=== PATIENT | female | born 1995 | race Hispanic/Latino ===

== ENCOUNTER → 2017-10-27 | Outpatient (CLI) | payer OTHER ==
[2017-10-27 17:49] LABS: MEAN CORPUSCULAR HEMOGLOBIN 26.6 pg (27.0-33.0); MEAN CORPUSCULAR HGB CONC 33.3 g/dl (32.0-36.5); MEAN CORPUSCULAR VOLUME 79.9 fl (80.0-96.0); PLATELET COUNT, AUTOMATED 256 10^3/uL (150-450); RED BLOOD COUNT 4.88 10^6/uL (4.00-5.40); RED CELL DISTRIBUTION WIDTH 13.2 % (11.5-14.5); WHITE BLOOD COUNT 7.4 10^3/uL (4.0-10.0)
[2017-10-27 18:29] LABS: TOTAL 25(OH) VITAMIN D 27.3 NG/ML (30.0-100.0)
[2017-10-27 18:32] LABS: ALBUMIN/GLOBULIN RATIO 1.14 (1.00-1.93); ALKALINE PHOSPHATASE 62 U/L (45-117); ALT/SGPT 21 U/L (12-78); ANION GAP 6 MEQ/L (8-16); AST/SGOT 15 U/L (7-37); BILIRUBIN,TOTAL 0.5 MG/DL (0.2-1.0); BLOOD UREA NITROGEN 11 MG/DL (7-18); CALCIUM LEVEL 8.9 MG/DL (8.5-10.1); CARBON DIOXIDE LEVEL 26 MEQ/L (21-32); CHLORIDE LEVEL 107 MEQ/L (98-107); FREE T4 0.95 NG/DL (0.76-1.46); GLOMERULAR FILTRATION RATE > 60.0 (>60); GLUCOSE, FASTING 78 MG/DL (70-100); POTASSIUM SERUM 4.7 MEQ/L (3.5-5.1); SODIUM LEVEL 139 MEQ/L (136-145); TOTAL PROTEIN 7.5 GM/DL (6.4-8.2)
== END ==
LOC: M SMT 15:08
DX: Z13.29 Encounter for screening for other suspected endocrine disorder (principal); Z13.0 Encounter for screening for diseases of the blood and blood-forming organs and certain disorders involving the immune mechanism; E55.9 Vitamin D deficiency, unspecified
CPT/HCPCS: 84443

== ENCOUNTER → 2017-11-24 | Outpatient (REF) | payer OTHER ==
[2017-11-24 20:29] LABS: CHLAMYDIA DNA AMPLIFICATION NEGATIVE (NEGATIVE); GC DNA AMPLIFICATION NEGATIVE (NEGATIVE)
== END ==
LOC: M LAB REF 17:41
DX: Z11.3 Encounter for screening for infections with a predominantly sexual mode of transmission (principal)

== ENCOUNTER → 2018-03-07 | Outpatient (CLI) | payer OTHER ==
[2018-03-07 17:49] LABS: BASO % 0.4 % (0.0-1.0); EOS # 0.1 10^3/uL (0.0-0.50); EOS % 0.8 % (0.0-3.0); HEMATOCRIT 39.9 % (36.0-47.0); HEMOGLOBIN 14.1 g/dl (12.0-15.5); IMMATURE GRANULOCYTE % 0.4 % (0-3.0); LYMPH # 2.2 10^3/uL (1.5-6.5); LYMPH % 23.6 % (24.0-44.0); MEAN CORPUSCULAR HEMOGLOBIN 29.7 pg (27.0-33.0); MEAN CORPUSCULAR HGB CONC 35.3 g/dl (32.0-36.5); MEAN CORPUSCULAR VOLUME 84.2 fl (80.0-96.0); MONO # 0.5 10^3/uL (0.0-0.8); MONO % 5.3 % (0.0-5.0); NEUTROPHILS # 6.6 10^3/uL (1.8-7.7); NEUTROPHILS % 69.5 % (36.0-66.0); PLATELET COUNT, AUTOMATED 242 10^3/uL (150-450); RED BLOOD COUNT 4.74 10^6/uL (4.00-5.40); RED CELL DISTRIBUTION WIDTH 12.5 % (11.5-14.5); WHITE BLOOD COUNT 9.5 10^3/uL (4.0-10.0)
[2018-03-07 19:53] LABS: CHLAMYDIA DNA AMPLIFICATION NEGATIVE (NEGATIVE); GC DNA AMPLIFICATION NEGATIVE (NEGATIVE)
[2018-03-08 09:15] LABS: RUBELLA IgG QUALITATIVE IMMUNE (IMMUNE)
[2018-03-08 09:19] LABS: HBsAg Prenatal NEGATIVE (NEGATIVE)
[2018-03-08 09:45] LABS: HEPATITIS C VIRUS ABY INDEX 0.1 INDEX (<0.8)
[2018-03-08 11:06] LABS: HIV 1&2 SCREEN CENTAUR NEGATIVE (NEGATIVE)
== END ==
LOC: M SMT 14:53
DX: Z36.89 Encounter for other specified antenatal screening (principal); Z3A.08 8 weeks gestation of pregnancy
CPT/HCPCS: 86762

== ENCOUNTER → 2018-04-03 | Outpatient (REF) | payer OTHER | LOC: M LAB REF 17:20 | DX: O30.031 Twin pregnancy, monochorionic/diamniotic, first trimester (principal) ==

== ENCOUNTER 2018-04-27 08:15 | Emergency (ER) | payer OTHER ==
[2018-04-27] MEDS: ACETAMINOPHEN 325 MG TAB PO (09:00)
[2018-04-27] MEDS: NS 1,000 ML IV (09:00)
[2018-04-27 09:25] LABS: BASO % 0.3 % (0.0-1.0); EOS # 0.1 10^3/uL (0.0-0.50); EOS % 0.8 % (0.0-3.0); HEMOGLOBIN 11.8 g/dl (12.0-15.5); IMMATURE GRANULOCYTE % 0.3 % (0-3.0); LYMPH # 1.4 10^3/uL (1.5-6.5); LYMPH % 19.8 % (24.0-44.0); MEAN CORPUSCULAR HEMOGLOBIN 30.6 pg (27.0-33.0); MEAN CORPUSCULAR HGB CONC 35.8 g/dl (32.0-36.5); MEAN CORPUSCULAR VOLUME 85.5 fl (80.0-96.0); MONO # 0.4 10^3/uL (0.0-0.8); MONO % 6.1 % (0.0-5.0); NEUTROPHILS # 5.1 10^3/uL (1.8-7.7); NEUTROPHILS % 72.7 % (36.0-66.0); PLATELET COUNT, AUTOMATED 178 10^3/uL (150-450); RED BLOOD COUNT 3.86 10^6/uL (4.00-5.40); RED CELL DISTRIBUTION WIDTH 13.1 % (11.5-14.5); WHITE BLOOD COUNT 7.1 10^3/uL (4.0-10.0)
[2018-04-27 09:36] LABS: AMORPHOUS SEDIMENT RFX SMALL (NEGATIVE); KETONE, URINE AUTO RFX NEGATIVE (NEGATIVE); LEUKOCYTE ESTERASE UR AUTO RFX 1+ (NEGATIVE); MUCUS, URINE RFX SMALL (NEGATIVE); NITRITE, URINE AUTO RFX NEGATIVE (NEGATIVE); RBC, URINE AUTO RFX TNTC /HPF (0-3); SPECIFIC GRAVITY UR AUTO RFX 1.014 (1.002-1.035); SQUAM EPITHELIAL CELL UR AURFX 4 /HPF (0-6); WBC, URINE AUTO RFX 112 /HPF (0-3)
[2018-04-27 10:04] LABS: ANION GAP 8 MEQ/L (8-16); BLOOD UREA NITROGEN 6 MG/DL (7-18); C REACTIVE PROTEIN QUANTITATIV 0.42 MG/DL (0.00-0.30); CALCIUM LEVEL 8.3 MG/DL (8.5-10.1); CARBON DIOXIDE LEVEL 23 MEQ/L (21-32); CHLORIDE LEVEL 108 MEQ/L (98-107); CREATININE FOR GFR 0.44 MG/DL (0.55-1.30); GLOMERULAR FILTRATION RATE > 60.0 (>60); GLUCOSE, FASTING 82 MG/DL (70-100); HCG, SERUM QUANTITATIVE 74482 MIU/ML; POTASSIUM SERUM 3.7 MEQ/L (3.5-5.1); SODIUM LEVEL 139 MEQ/L (136-145)
[2018-04-27] MEDS: CEPHALEXIN 500 MG CAP PO (10:30)
== END 2018-04-27 10:51 | disposition home or self-care (01) ==
LOC: M ED 08:15
DX: O26.892 Other specified pregnancy related conditions, second trimester (principal); O23.32 Infections of other parts of urinary tract in pregnancy, second trimester; O23.02 Infections of kidney in pregnancy, second trimester; N12 Tubulo-interstitial nephritis, not specified as acute or chronic; Z3A.15 15 weeks gestation of pregnancy
CPT/HCPCS: 76811

== ENCOUNTER → 2018-05-29 | Outpatient (CLI) | payer OTHER | LOC: M SMT 12:57 | DX: O30.032 Twin pregnancy, monochorionic/diamniotic, second trimester (principal); Z3A.20 20 weeks gestation of pregnancy | CPT/HCPCS: 76811 ==

== ENCOUNTER → 2018-06-30 | Outpatient (CLI) | payer OTHER | LOC: M SMT 13:04 | DX: O30.031 Twin pregnancy, monochorionic/diamniotic, first trimester (principal); Z3A.25 25 weeks gestation of pregnancy | CPT/HCPCS: 76811 ==

== ENCOUNTER → 2018-08-16 | Outpatient (CLI) | payer OTHER ==
[~2018-08-16] MED LIST: KEFL500C17 PO; PREN1TAB15
[2018-08-16 18:27] LABS: BASO % 0.4 % (0.0-1.0); EOS # 0.1 10^3/uL (0.0-0.50); EOS % 1.3 % (0.0-3.0); HEMATOCRIT 35.9 % (36.0-47.0); HEMOGLOBIN 12.2 g/dl (12.0-15.5); LYMPH # 1.5 10^3/uL (1.5-6.5); MEAN CORPUSCULAR HEMOGLOBIN 31.2 pg (27.0-33.0); MEAN CORPUSCULAR VOLUME 91.8 fl (80.0-96.0); MONO # 0.7 10^3/uL (0.0-0.8); MONO % 6.7 % (0.0-5.0); NEUTROPHILS # 7.8 10^3/uL (1.8-7.7); NEUTROPHILS % 75.8 % (36.0-66.0); PLATELET COUNT, AUTOMATED 195 10^3/uL (150-450); RED BLOOD COUNT 3.91 10^6/uL (4.00-5.40); WHITE BLOOD COUNT 10.3 10^3/uL (4.0-10.0)
== END ==
LOC: M SMT 13:23
PROVIDERS: ATTEND Advanced Practice Midwife
DX: O30.032 Twin pregnancy, monochorionic/diamniotic, second trimester (principal)

== ENCOUNTER → 2018-08-16 | Outpatient (CLI) | payer OTHER ==
--- NOTE | 2018-08-16 22:24 | REP ---
Clinical: Twin gestation. Anatomical reevaluation Comparison: 06/30/2018 . Findings: Examination demonstrates diamniotic monochorionic twin gestation. Placenta is identified posterolaterally towards the right side and grade III without evidence for placenta previa or abruption. Cervix measures 3.0 cm in length and appears closed. Concordant growth is noted. Gestational age by LMP at 31 weeks 5 days with estimated date of delivery 10/13/2018 . TWIN A: Twin A identified in cephalic presentation along the maternal left side. motion is appreciated. Amniotic fluid volume is normal and the deepest pocket measures 3.6 cm. FHR equals 147 beats per minute. Estimated weight 1787 grams ( 39th percentile). Limited anatomical assessment without obvious abnormality. ------- TWIN B: Twin B identified in transverse (head to maternal right) presentation along the maternal midline side. motion is appreciated. Amniotic fluid volume is normal and the deepest pocket measures 3.2 cm. FHR equals 150 beats per minute. Estimated weight 1791 grams ( 40th percentile). Limited anatomical assessment without obvious abnormality. Impression: Known diamniotic monochorionic twin gestation demonstrating appropriate concordant growth. No gross abnormalities are identified. Electronically Signed by Kannan Pradhan MD 08/16/2018 10:15 P
== END ==
LOC: M RAD 16:24
PROVIDERS: ATTEND Advanced Practice Midwife
DX: O30.032 Twin pregnancy, monochorionic/diamniotic, second trimester (principal); Z3A.31 31 weeks gestation of pregnancy; O32.2XX2 Maternal care for transverse and oblique lie, fetus 2

== ENCOUNTER → 2018-08-24 | Outpatient (REF) | payer OTHER | LOC: M LAB REF 16:37 | PROVIDERS: ATTEND Obstetrics & Gynecology | DX: O30.033 Twin pregnancy, monochorionic/diamniotic, third trimester (principal) ==

== ENCOUNTER 2018-08-29 16:55 | Inpatient (IN) | payer OTHER ==
[~2018-08-29] VITALS: Ht 165.1 cm; Wt 75.0 kg
--- NOTE | 2018-08-29 17:54 | NUR ---
L&D H&P HPI: 23 year old at 33+4 weeks estimated gestation. [place]/Di twin gestation. Expected date of confinement: 10/13/18. dated by LMP c/w a first trimester ultrasound. Presents today with complaint of a large loss of clear fluid around 1445 this afternoon. Unprovoked. Denies any recent intercourse. She has continued to leak fluid since the initial loss of fluid. Denies vaginal bleeding or painful uterine contractions. Reports regular movement. course notable for the followin. [place]/Di twins. Spontaneously conceived. Normal concordant growth thus far. 08/16/18: A, 39th percentile/1787g, B 40th percentile/1791g. Reassuring antepartum testing thus far. 2. malpresentation: Vertex / Breech labs: Blood type O+, antibody screen negative, rubella immune, VDRL nonreactive , hepatitis B surface antigen negative, HIV negative, hepatitis C antibody negative, GC/CT negative, aneuploidy/maternal serum screening: not done, 1 hour glucose challenge test: 93, GBS unknown. Radiology/OB US: no anomalies or placental abnormalities detected. History Past medical history: none Surgical history: none Medications: PNV, FeSO4, Folate Allergies: NKDA [employer] ASSISTANT history: +HPV. Dysplasia hx unknown. no other STI OB history:G1 Social history: no t/e/d Family history: no MR , VTE Objective Vitals: Normotensive, normal heart rate, afebrile Heart: Regular rate and rhythm. No murmurs, rubs or gallops. Lungs: Clear to auscultation bilaterally. No wheezes, crackles, rales or rhonchi. Abdomen: Uterine fundal height consistent with dates. No guarding or rebound tenderness. No uterine fundal tenderness. Extremities: No clubbing, cyanosis or edema. Normal deep tendon reflexes. Sterile speculum exam: +pooling, +Nitrazine/ferning, clear fluid Sterile vaginal exam: 1 cm, 25 %effacement, -3 station, cephalic, intact External monitoring: heart rate category 1 Tocodynamometer: contractions present every 2 min; no pain reported. Assessment/Plan 23 year old at 33+4 weeks gestation. Diagnosis: [place]/Di twins with premature rupture of membranes. No e/o IAI or active PTL. Vertex / breech pres entation. Reassuring and maternal status. -Admit to labor and delivery -Latency abx; IV ampicillin 2g q6h and Azithromycin 1g PO x 1 - corticosteroids: Betamethasone 12mg IM q24h x 2 doses -Tocolysis PRN while receiving course of corticosteroids -Timing of delivery plan: 34+0 weeks after BMTZ course. Rationale for delivery at 34+0 weeks discussed with patient and her . Deliver sooner for matern al or indications. -Mode of delivery planned: PLTCS for malpresentation. -Continuous external monitoring and tocodynamometer -NICU notified of pt's admission. Dr. Ubaldo Han, DO, FACOG
[2018-08-29] MEDS ORDERED: AZITHROMYCIN 250 MG TAB PO ONE (18:00)
[2018-08-29] MEDS: AMPICILLIN SOD 2 GM in D5W MINI-BAG PLUS 100 ML IV SCH (18:15)
[2018-08-29] MEDS: BETAMETHASONE SOLUSPAN 6MG/ML INJ 5ML (J0702) IM SCH (18:27)
[2018-08-29 18:33] LABS: HEMATOCRIT 36.2 % (36.0-47.0); HEMOGLOBIN 12.7 g/dl (12.0-15.5); MEAN CORPUSCULAR HEMOGLOBIN 31.1 pg (27.0-33.0); MEAN CORPUSCULAR HGB CONC 35.1 g/dl (32.0-36.5); MEAN CORPUSCULAR VOLUME 88.7 fl (80.0-96.0); PLATELET COUNT, AUTOMATED 179 10^3/uL (150-450); RED BLOOD COUNT 4.08 10^6/uL (4.00-5.40)
[2018-08-29] MEDS: INDOMETHACIN 25 MG CAP PO PRN (19:38)
[2018-08-30] VITALS (9 sets, daily range): BP systolic 92–112; BP diastolic 52–59
[2018-08-30] MEDS: AMPICILLIN SOD 2 GM in D5W MINI-BAG PLUS 100 ML IV SCH ×5 (00:15→23:59)
[2018-08-30] MEDS: INDOMETHACIN 25 MG CAP PO PRN ×2 (07:23→17:00)
--- NOTE | 2018-08-30 07:53 | NUR ---
Progress Note Pt continues to leak clear fluid (small amounts). No VB. Denies painful contractions or uterine pain. +FM x 2. Denies subjective fever/chills/myalgias, sob/cp. VSS, normotensive, afebrile Abd: soft,nt,nd,no uterine fundal tenderness, no guarding / rebound tenderness EFM: Cat I [place]: irreg, nonpainful contractions A/P: 23yo G1 PPROM w/ [place]/Di twins at 33+5 weeks. No e/o IAI or PTL. Reassuring status x 2. -Continue w/ latency abx -BMTZ #2 due later today -PLTCS at 34+0 weeks or sooner if indicated. Bryan Han, DO
[2018-08-30] MEDS ORDERED: CALCIUM CARBONATE 500 MG CHEW U/D PO PRN (12:00)
[2018-08-30] MEDS ORDERED: LOPERAMIDE 2 MG CAP PO PRN (12:00)
[2018-08-30] MEDS ORDERED: PILL CRUSHER/CUTTER 1 EACH XX PRN (12:00)
[2018-08-30] MEDS: FAMOTIDINE 20 MG TAB PO SCH ×2 (12:44→21:00)
[2018-08-30] MEDS: BETAMETHASONE SOLUSPAN 6MG/ML INJ 5ML (J0702) IM SCH (18:15)
[2018-08-31] VITALS (8 sets, daily range): BP systolic 99–116; BP diastolic 52–63
[2018-08-31] MEDS: AMPICILLIN SOD 2 GM in D5W MINI-BAG PLUS 100 ML IV SCH ×3 (05:46→19:10)
--- NOTE | 2018-08-31 08:10 | NUR ---
Progress notes S: No complaints, rare contractions O: [id number] AF NAD Abd: NT, gravid FHT: Cat I x 2 toco: none A/P 23 yo G1 at 33 6/7 weeks with twins., PPROM Latency antibiotics finished steroids Plan delivery via tomorrow Rohan Fay MD
[2018-08-31] MEDS: FAMOTIDINE 20 MG TAB PO SCH ×2 (08:44→21:40)
[2018-09-01] VITALS (8 sets, daily range): BP systolic 101–121; BP diastolic 51–74
[2018-09-01] MEDS: AMPICILLIN SOD 2 GM in D5W MINI-BAG PLUS 100 ML IV SCH (00:03)
[2018-09-01] MEDS ORDERED: LR 1,000 ML IV SCH (04:19)
[2018-09-01] MEDS ORDERED: LACTATED RINGER'S 1000 ML IV STA (04:19)
[2018-09-01] MEDS ORDERED: BICITRA 30ML SOLN UDC PO ONE (04:30)
[2018-09-01 05:05] LABS: HEMOGLOBIN 9.8 g/dl (12.0-15.5); MEAN CORPUSCULAR HEMOGLOBIN 31.1 pg (27.0-33.0); MEAN CORPUSCULAR HGB CONC 33.8 g/dl (32.0-36.5); MEAN CORPUSCULAR VOLUME 92.1 fl (80.0-96.0); PLATELET COUNT, AUTOMATED 146 10^3/uL (150-450); RED BLOOD COUNT 3.15 10^6/uL (4.00-5.40); WHITE BLOOD COUNT 11.2 10^3/uL (4.0-10.0)
[2018-09-01] MEDS: FAMOTIDINE 20 MG TAB PO SCH ×2 (09:00→20:56)
--- NOTE | 2018-09-01 10:51 | NUR ---
Progress Note No changes over past 24 hours. Pt still c/o LOF,clear. No VB or painful uctx. VSS,normotensive,afebrile US,rao: vertex/breech EFM: Reactive x 2. [place]: ctxs every 3-5 min A/P: PPROM, [place]/Di twins, 34+0 weeks. Completed course of corticosteroids. Proceed to PLTCS this AM. Pt has been NPO since MICHELA. Bryan Han DO
[2018-09-01] MEDS ORDERED: OXYTOCIN DRIP 30 UNITS in APPROPRIATE DILUENT 1 EA IV SCH (12:13)
[2018-09-01] MEDS ORDERED: MEASLES,MUMPS,RUBELLA VACCINE INJ (MMR-II) (90707) SC SCH (12:15)
[2018-09-01] MEDS ORDERED: PROMETHAZINE 25 MG TAB PO PRN (12:15)
[2018-09-01] MEDS ORDERED: RHOGAM 300 MCG (1500 IU) INJ (J2790) IM SCH (12:15)
[2018-09-01] MEDS ORDERED: ONDANSETRON 4MG/2ML VIAL (J2405) IV PRN ×2 (12:15→12:45)
[2018-09-01] MEDS ORDERED: PERCOCET 5MG/325MG TAB PO PRN (12:15)
[2018-09-01] MEDS ORDERED: OXYTOCIN 30 UNITS IN 0.9% NaCl 500ML IV BAG (J2590) As Ordered ONE (12:25)
--- NOTE | 2018-09-01 12:31 | NUR ---
Operative Note Date of procedure: 09/01/2018 Procedure: Primary low-transverse section Anesthesia: Spinal with Duramorph Preoperative diagnosis: 34+0 weeks gestation, Monochorionic / Diamniotic twin gestation, prelabor rupture of membranes, Vertex/Breech presentation. Postoperative diagnosis: same Indication: 23yo now P2. [place]/Di twins complicated by PPROM. Received corticosteroids. Vertex/breech presentation. Mode of delivery elected: [facility] Primary surgeon: Ubaldo Han D.O., [employer] Supervisor: Bryan Daugherty CNM (essential role in surgical site exposure and assistance with delivery of both twins through hysterotomy) Estimated blood loss:800 ml IV fluids administered: 1300 ml crystalloid Drains: Lopez catheter. Urine output:150 ml data: Twin A Apgars 9 and 9. BW: 1900b, 4lbs 3oz. Twin B Apgars 9 and 9, BW: 1960g, 4lbs 5oz. Preoperative/prophylactic antibiotics: Ancef 2 g IV (given within 30 minutes prior to surgical start time). Intraoperative findings: vertex / breech presentation. Ruptured amniotic sac of Twin A, with minimal clear fluid. Normal uterus and bilateral adnexa/ovaries. 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 Specimen(s): mono/di placenta Procedure: The patient was counseled and consented on the risks, benefits, indications and alternatives of the procedure. Informed consent was obtained and placed in the c abbasi. She was taken to the operating room with an IV running. She was placed on the operating table. Spinal anesthesia was administered without any difficulty and found to be adequate. She was placed in the dorsal supine position with a leftward tilt. Sequential compression devices were placed on the lower extremities. A Lopez catheter was placed under sterile conditions. She was sterilely prepped and draped. A surgical timeout was performed per protocol. Spinal anesthesia was again found to be adequate. Using the 10 blade a Pfannenstiel incision was performed. The 10 blade was used to dissect down to the level of the rectus sheath fascia. The rectus sheath fas ric was incised at the midline, and the fascial incision was extended with Smith scissors. Marce clamps were used to grasp the superior and inferior aspect of the fascial incision and the rectus muscle bellies were dissected off sharply and bluntly. The midline was identified and the rectus muscle bellies were manually . The peritoneum was identified and clamped with hemostats and elevated. The peritoneum was then incised with Metzenbaum scissors. Entry into the intraperitoneal cavity was achieved. The peritoneal opening was extended with manual stretch . There was good visualization of both the bladder and the lower uterine segment. The bladder retractor was placed. The vesicouterine peritoneum was dissected with Metzenbaum scissors and blunt dissection. Bladder retractor was repositioned. A low transverse uterine incision was made with a new 10 blade. The hysterotomy was extended with manual stretch. The amniotic sac of Twin A was opened. Clear amniotic fluid was noted. The baby's head delivered through the hysterotomy with ease. The remainder of the body delivered with ease. The cord was doubly clamped and cut and the baby was handed off to awaiting care. The amniotic sac of Twin B was protruding and artificially ruptured. Clear amniotic fluid was noted. The two feet were brought through the hysterotomy. Breech maneuvers were performed to delivery the corpus, upper extremities, and head. Twin B delivered through the hysterotomy with ease. The cord was doubly clamped and cut and the baby was handed off to awaiting care.See data above. The placenta was manually removed and noted to be fully intact. The uterus was exteriorized. The intrauterine cavity was cleared of all clot and debris with a laparotomy sponge. The hysterotomy was closed with 0 Vicryl in running, locked fashion. A second imbricating closure was performed over the initial layer closure using 0 Vicryl. The hysterotomy was noted to be hemostatic. The posterior cul-de-sac was irrigated and cleared of all clot and debris. The uterus was replaced back into the abdomen. The paracolic gutters were cleared of all clot and debris with damp laparotomy sponges. The hysterotomy is reinspected and noted to be hemostatic. Sponge, needle and instrument counts were correct. The peritoneum was closed with 3-0 Vicryl in running fashion. The rectus muscle bellies were reapproximated with 3-0 Vicryl with a series of interrupted sutures. The rectus muscle bellies were noted to be hemostatic. The fascia was closed with 0 Vicryl in running fashion. Sponge, needle and instrument counts were again correct. The subcutaneous layer was irrigated. Smal l subcutaneous bleeders were cauterized with Bovie. The subcutaneous layer was reapproximated with 3-0 Vicryl in running fashion. The skin was closed with 3-0 Monocryl in subcuticular fashion. A bandage was placed over the closed incision. The final sponge, instrument and needle count was correct. She tolerated the entire procedure very well. She was transferred to the PACU in good and stable condition. Dr. Ubaldo Han D.O., F.A.C.O.G
[2018-09-01] MEDS ORDERED: PERCOCET PO (12:32)
[2018-09-01] MEDS ORDERED: IBUP80TA PO (12:36)
[2018-09-01] MEDS ORDERED: COLA100C5 PO (12:36)
[2018-09-01] MEDS ORDERED: fentaNYL 100 MCG/2 ML INJECTION (J3010) IV PRN (12:45)
[2018-09-01] MEDS ORDERED: MEPERIDINE INJ 25 MG/ML VIAL (J2175) IV PRN (12:45)
[2018-09-01] MEDS ORDERED: NALBUPHINE HCL 10 MG/ML AMP (J2300) IV PRN (12:45)
[2018-09-01] MEDS ORDERED: NORCO, ANEXSIA 5/325MG TABLET (HYDROcodone/ACETAMINOPHEN) PO PRN (12:45)
[2018-09-01] MEDS ORDERED: KETOROLAC 30 MG/ML VIAL (J1885) IV PRN (12:45)
[2018-09-01] MEDS ORDERED: ONDANSETRON 4MG/2ML VIAL (J2405) As Ordered ONE (13:10)
[2018-09-01] MEDS: LR 1,000 ML IV SCH ×2 (14:43→20:13)
[2018-09-01] MEDS: KETOROLAC 30 MG/ML VIAL (J1885) IV SCH ×2 (14:43→20:55)
[2018-09-01] MEDS: DOCUSATE SODIUM 100 MG CAP PO SCH (20:55)
[2018-09-02] MEDS: KETOROLAC 30 MG/ML VIAL (J1885) IV SCH ×2 (01:16→07:33)
[2018-09-02 02:00] VITALS: BP 110/59
[2018-09-02] MEDS: LR 1,000 ML IV SCH ×3 (04:13→19:17)
[2018-09-02 06:03] VITALS: BP 102/56
[2018-09-02 07:32] LABS: HEMOGLOBIN 8.5 g/dl (12.0-15.5); MEAN CORPUSCULAR HEMOGLOBIN 31.1 pg (27.0-33.0); MEAN CORPUSCULAR VOLUME 91.6 fl (80.0-96.0); PLATELET COUNT, AUTOMATED 145 10^3/uL (150-450); RED BLOOD COUNT 2.73 10^6/uL (4.00-5.40); WHITE BLOOD COUNT 12.4 10^3/uL (4.0-10.0)
[2018-09-02] MEDS: PRENATAL VITAMINS CHEWABLE TABLET PO SCH (09:53)
[2018-09-02] MEDS: DOCUSATE SODIUM 100 MG CAP PO SCH ×2 (09:54→20:02)
[2018-09-02] MEDS: PERCOCET 5MG/325MG TAB PO PRN ×2 (09:54→22:15)
[2018-09-02] MEDS: FAMOTIDINE 20 MG TAB PO SCH ×2 (10:03→20:03)
[2018-09-02 10:18] VITALS: BP 107/57
--- NOTE | 2018-09-02 10:20 | NUR ---
POD#1 S: Doing well w/o complaints. Tolerating diet, ambulating, voiding and pain well controlled. O: vss, AF gen: well appearing abd: soft, appropriately tender incision: dressed ext: neg calf tenderness A/P: POD #1 s/p 1LTCS for twins/breech- stable -continue /postoperative care Lisa Kaminski MD
[2018-09-02 14:36] VITALS: BP 105/57
[2018-09-02] MEDS: IBUPROFEN 800 MG TAB PO SCH ×2 (15:55→23:15)
[2018-09-02 18:50] VITALS: BP 94/50
[2018-09-02 21:48] VITALS: BP 110/56
[2018-09-03 01:52] VITALS: BP 121/70
[2018-09-03] MEDS: LR 1,000 ML IV SCH (03:27)
[2018-09-03 05:46] VITALS: BP 120/60
[2018-09-03] MEDS: IBUPROFEN 800 MG TAB PO SCH (07:36)
[2018-09-03] MEDS: PRENATAL VITAMINS CHEWABLE TABLET PO SCH (07:36)
[2018-09-03] MEDS: FAMOTIDINE 20 MG TAB PO SCH (07:58)
[2018-09-03] MEDS: DOCUSATE SODIUM 100 MG CAP PO SCH (07:58)
[2018-09-03] MEDS ORDERED: TUMS500C PO (10:06)
[2018-09-03] MEDS ORDERED: OXYC1TAB23 PO (10:06)
--- NOTE | 2018-09-03 21:38 | DSES ---
DATE OF ADMISSION: 08/29/2018 DATE OF DISCHARGE: 09/03/2018 DISCHARGE DIAGNOSES: 1. premature rupture of membranes. 2. Monochorionic diamniotic twin gestation. 3. Breech presentation. PROCEDURES PERFORMED WHILE IN HOSPITAL: 1. Spinal anesthesia. 2. section. DISCHARGE CONDITION: Stable. HISTORY AND HOSPITAL COURSE: She is a 23-year-old, 1 that presented at 33 weeks, 4 days estimated gestational age with known monochorionic diamniotic twin gestation with premature rupture of membranes. She was started on antibiotics for prolonged latency as well as provided with betamethasone for lung maturity. At 34 weeks, she underwent a section for breech presentation which was uncomplicated. Estimated blood loss is 800 mL. It was productive of two live born male infants, weight was 1900 grams or 4 pounds, 3 ounces and 1960 grams or 4 pounds, 5 ounces. She did well postoperatively. By postoperative day #2, had met all discharge criteria and was discharged home in stable condition. PHYSICAL EXAMINATION ON DATE OF DISCHARGE: VITAL SIGNS: Stable. She is afebrile. GENERAL APPEARANCE: Well-appearing, no acute distress. ABDOMEN: Soft, appropriately tender. Fundus was below umbilicus. Incision was dressed. EXTREMITIES: Negative for calf tenderness. DISCHARGE MEDICATIONS: - ibuprofen - Percocet - Colace DISCHARGE INSTRUCTIONS: 1. She was instructed to followup in 2 weeks for an incision check. 2. To report severe pain, heavy vaginal bleeding, or fever. 3. To remain on pelvic rest.
== END 2018-09-03 11:30 | disposition home or self-care (01) | DRG 771 ==
LOC: M LDO 16:55 → M LDI 17:43 → M OBS 09-01 13:45
PROVIDERS: ADMIT Obstetrics & Gynecology; ATTEND Obstetrics & Gynecology
PROC: 10D00Z1 Extraction of Products of Conception, Low, Open Approach (ICD-10-PCS; principal; 2018-09-01)
DX: O32.1XX0 Maternal care for breech presentation, not applicable or unspecified (principal); O60.14X0 Preterm labor third trimester with preterm delivery third trimester, not applicable or unspecified; O42.113 Preterm premature rupture of membranes, onset of labor more than 24 hours following rupture, third trimester; Z3A.33 33 weeks gestation of pregnancy; Z37.2 Twins, both liveborn; O30.033 Twin pregnancy, monochorionic/diamniotic, third trimester

== ENCOUNTER → 2018-11-27 | Outpatient (REF) | payer OTHER ==
[~2018-11-27] MED LIST changes: +COLA100C5 PO; +IBUP80TA PO; +OXYC1TAB23 PO; +PERCOCET PO; +TUMS500C PO
== END ==
LOC: M LAB REF 17:56
PROVIDERS: ATTEND Obstetrics & Gynecology
DX: Z12.4 Encounter for screening for malignant neoplasm of cervix (principal); R85.610 Atypical squamous cells of undetermined significance on cytologic smear of anus (ASC-US)

== ENCOUNTER → 2018-11-27 | Outpatient (REF) | payer OTHER ==
[2018-11-27 22:00] LABS: CHLAMYDIA DNA AMPLIFICATION NEGATIVE (NEGATIVE); GC DNA AMPLIFICATION NEGATIVE (NEGATIVE)
== END ==
LOC: M LAB REF 17:09
PROVIDERS: ATTEND Obstetrics & Gynecology
DX: Z11.3 Encounter for screening for infections with a predominantly sexual mode of transmission (principal)

== ENCOUNTER → 2018-12-13 | Outpatient (CLI) | payer OTHER ==
[2018-12-13 14:04] LABS: FREE T4 1.02 NG/DL (0.76-1.46)
[2018-12-13 14:05] LABS: TOTAL 25(OH) VITAMIN D 20.1 NG/ML (30.0-100.0)
[2018-12-13 16:01] LABS: THYROGLOBULIN ANTIBODY < 15.0 U/ML (<60.0); THYROID PEROXIDASE ANTIBODY 44.1 U/ML (<60.0)
== END ==
LOC: M SMT 11:20
PROVIDERS: ATTEND Family Medicine
DX: L63.9 Alopecia areata, unspecified (principal)